=== PATIENT | female | born 1960 | race Caucasian/White ===

== ENCOUNTER 2019-06-20 21:16 | Emergency (ER) | payer SELFPAY ==
--- NOTE | ~2019-06-20 | XR_ITS ---
EXAMINATION: XR abdomen/kub 1V DATE: 06/20/2019 21:53 INDICATION: Abdominal distention. Constipation. TECHNIQUE: A supine view of the abdomen on 2 radiographs was obtained. COMPARISON: None. FINDINGS: There are no dilated loops of bowel. There is a small volume of stool in the colon. Calcifi cations in the pelvis are likely phleboliths. There is a staple line in left upper quadrant. IMPRESSION: 1. Normal bowel gas pattern. Reviewed, dictated and finalized at location A.
--- NOTE | 2019-06-20 21:20 | ED.GENADULT ---
HPI - General Adult General Chief complaint: Abdominal Pain Stated complaint: constipation Time Seen by Provider: 06/20/19 21:18 Source: patient Mode of arrival: ambulatory Limitations: no limitations History of Present Illness HPI narrative: Patient is a 59-year-old female who presents for evaluation of constipation. Patient reports a greater than weeklong history of no bowel movement, reports she has had some flatus, and very small pellety type stool. Patient currently states that she is impacted, has tried to digitally disimpact herself at home without much success. Patient reports feeling like her rectum is swollen, tender. Patient has a history of chronic constipation. She has tried enemas at home without much improvement as well. She reports mild, cramping abdominal pain, mild abdominal distention, no nausea or vomiting. Related Data Allergies Allergy/AdvReac Type Severity Reaction Status Date / Time fenofibric acid [Fibricor] Allergy Unknown arthralgias Verified 10/28/17 15:29 pitavastatin [Livalo] Allergy Unknown myalgias, Verified 10/28/17 15:29 arthralgias simvastatin Allergy Unknown Verified 10/28/17 15:29 SEROTONIN AdvReac Unknown Uncoded 05/04/15 18:32 Review of Systems Review of Systems: Narrative: CONSTITUTIONAL: Denies fever, chills, or sweats. CARDIOVASCULAR: Denies chest pain, palpitations, or edema. RESPIRATORY: Denies cough or dyspnea. GASTROINTESTINAL: Reports abdominal pain, denies nausea, vomiting, reports constipation GENITOURINARY: Denies dysuria or hematuria. SKIN: Denies rash or itching. MUSCULOSKELETAL: Denies back pain, joint pain, or myalgia. NEUROLOGIC: Denies headache, numbness, or weakness. [facility] Past Medical History Medical History Cataract Endometriosis Hyperlipidemia Hypertension Surgical History Surgical History History of hysterectomy Hx of tonsillectomy Family History Family History Father Diabetes mellitus Family history of glaucoma Sibling Depression Mother Hypertension Grandparent Family history of cardiovascular disease, Onset Age: 65 Acute myocardial infarction, Onset Age: 65 Social History Social History Smoking status: Never smoker Alcohol intake: current Exam Narrative: Exam Narrative: GENERAL: Awake, alert, conversant, ambulatory in room HEAD: Normocephalic, atraumatic. EYES: PERRLA and EOMI. ENT: Nares clear, no rhinorrhea or epistaxis. Mucous membranes moist. NECK: Supple. CHEST: No respiratory distress, breathing even and non labored HEART: Regular rate, sinus rhythm ABDOMEN: Obese, mild distention, tenderness in the left upper quadrant /rectal: Good rectal tone, no thrombosed hemorrhoids, no fissures, no active bleeding, stool present in the rectum, able to remove some digitally EXTREMITIES: Normal range of motion. No edema. SKIN: Warm, dry, no rash. NEURO:No focal deficits. Alert and oriented x3 Course Course Emergency Course: Patient presented for evaluation of constipation and abdominal cramping. No sign of obstruction at the time of assessment. Patient is mildly distended, KUB shows stool present, no free air, no sign of bowel obstruction. Patient was given magnesium, oral MiraLAX, and enema and was able to have a bowel movement. She was then discharged home in stable condition. Vital Signs Vital signs: Vital Signs Temperature 36.7 C 06/20/19 21:24 Pulse Rate 82 06/20/19 21:24 Respiratory Rate 18 06/20/19 21:24 Blood Pressure 152/83 H 06/20/19 21:24 Pulse Oximetry 99 06/20/19 21:24 Temperature 36.7 C 06/20/19 21:24 Pulse Rate 82 06/20/19 21:24 Respiratory Rate 18 06/20/19 21:24 Blood Pressure 152/83 H 06/20/19 21:24 Pulse Oximetry 99 06/20/19 21:24 Medical
[2019-06-20 21:24] VITALS: BP 152/83; PULSE 82; RESP 18; TEMP 36.7; O2SAT 99
[2019-06-20] MEDS: MAGNESIUM SULF 2 GM/WATER 50ML 2 GM/50 ML BAG IVPB (21:53)
[2019-06-20] MEDS: SODIUM CHLORIDE 0.9% IV 1,000 ML 999 ML IV CONT (21:57)
[2019-06-20] MEDS: polyethylene glycoL 3350 238 GM BOTTLE PO (21:58)
[2019-06-20 22:03] LABS: Basophils Absolute Auto 0.1 K/mm3 (0.0-0.1); Basophils Percent Auto 0.4 % (0.2-1.2); Eosinophils Absolute Auto 0.2 K/mm3 (0-0.3); Eosinophils Percent Auto 1.2 % (0-4.4); Hematocrit 45.5 % (37.0-47.0); Hemoglobin 14.6 g/dL (12.0-15.0); Immature Granulocyte Absolute 0.03 K/mm3 (0.00-0.031); Immature Granulocyte Percent A 0.2 % (0-0.5); Lymphocytes Absolute Auto 2.23 K/mm3 (0.9-3.2); Lymphocytes Percent Auto 18.3 % (18.3-44.2); Mean Corpuscular HGB Conc 32.1 g/dl (32-36); Mean Corpuscular Hemoglobin 30.4 pg (26-34); Mean Corpuscular Volume 94.8 fl (80-100); Monocytes Absolute Auto 0.8 K/mm3 (0.1-0.6); Monocytes Percent Auto 6.7 % (2.6-8.5); Neutrophils Absolute Auto 8.9 K/mm3 (1.3-6.7); Neutrophils Percent Auto 73.2 % (45.5-73.1); Platelet Count Result 284 k/mm3 (150-375); Red Cell Distribution Width 14.7 % (11.5-14.5); White Blood Count 12.2 K/mm3 (4.5-10.0)
[2019-06-20 22:15] LABS: Blood Urea Nitrogen 10 mg/dL (7-17); Calcium 9.3 mg/dL (8.4-10.2); Carbon Dioxide 31 mmol/L (22-30); Chloride 104 mmol/L (98-107); Estimated CRCL calculation 86 ml/min; Estimated Glomerular Filt Rate > 60; Glucose 130 mg/dL (65-105); Potassium 4.5 mmol/L (3.4-5.0); Sodium 139 mmol/L (137-145)
[2019-06-20 23:02] VITALS: BP 138/97; PULSE 81; RESP 18; O2SAT 98
== END 2019-06-20 23:03 | disposition home or self-care (01) ==
PROVIDERS: Emergency Provider Emergency Medicine; PCP Family Medicine
DX: K59.01 Slow transit constipation (principal); N80.9 Endometriosis, unspecified; E78.5 Hyperlipidemia, unspecified; I10 Essential (primary) hypertension; H26.9 Unspecified cataract
CPT/HCPCS: 36415; 74018; 80048; 85025; 96365; 99284; A9270; J3475; J7030

== ENCOUNTER 2019-11-15 09:53 | Outpatient (NON) | payer OTHER, SELFPAY ==
[2019-11-15 21:51] LABS: SARS-CoV-2 RNA PCR Negative
== END 2019-11-15 09:54 ==
PROVIDERS: PCP Family Medicine; Visit Provider Family Medicine
DX: Z20.828 Contact with and (suspected) exposure to other viral communicable diseases (principal)
CPT/HCPCS: 87635; C9803; U0003

== ENCOUNTER 2019-11-24 15:03 | Outpatient (CLI) | payer OTHER, SELFPAY ==
--- NOTE | ~2019-11-24 | XR_ITS ---
EXAMINATION: XR chest 2V DATE: 11/24/2019 15:18 INDICATION: Shortness of breath and history of asthma TECHNIQUE: 04/28/2015 COMPARISON: None available FINDINGS: The lungs are free of acute opacities. There is no pleural effusion or pneumothorax. The ca rdiomediastinal silhouette is normal. Calcified bilateral breast implants are noted. There is moderat e lower thoracic spondylosis. IMPRESSION: 1. No acute cardiopulmonary abnormality. Reviewed, dictated and finalized at location A.
== END 2019-11-24 15:04 | disposition home or self-care (01) ==
PROVIDERS: PCP Family Medicine; Visit Provider Internal Medicine Critical Care Medicine
DX: R06.02 Shortness of breath (principal); J45.909 Unspecified asthma, uncomplicated
CPT/HCPCS: 71046

== ENCOUNTER 2019-12-01 09:40 | Outpatient (CLI) | payer OTHER, SELFPAY ==
[2019-12-01 11:11] LABS: Alanine Aminotransferase 23 U/L (4-35); Albumin Level 4.3 g/dL (3.5-5.1); Alkaline Phosphatase 76 U/L (38-126); Aspartate Amino Transferase 30 U/L (14-36); Bilirubin,Total 0.6 mg/dL (0.2-1.3)
[2019-12-03 21:09] LABS: ANA Cascade Screen Negative (Negative)
[2019-12-06 03:59] LABS: Immunoglobulin E 2 kU/L (<=114)
--- NOTE | 2019-12-12 11:30 | WPDPFTINT ---
PFT Interpretation PFT Interpretation: This PFT met all criteria for ATS standards and reproducibility FEV/FVC post bronchodilator 74% FEV1 100% FVC 100% TLC 97% RV 94% RV/TLC 36% DLCO 72% when adjusted for alveolar volume but not adjusted for hemoglobin Flow volume loops showed some end expiratory coving Impression: Possible mild small airway obstruction with mildly decreased diffusion capacity. This may be suggestive of early COPD but other lung conditions cannot be ruled out. Clinical correlation is advised.
--- NOTE | 2019-12-12 11:33 | WPDSIXMINUTE ---
Six Minute Walk Six Minute Walk: The patients O2 sats started at 94% and dropped as low as 95% Total walk distance 1350 feet conclusion: This patient does not qualify for home oxygen therapy.
== END 2019-12-01 09:41 | disposition home or self-care (01) ==
PROVIDERS: PCP Family Medicine; Visit Provider Internal Medicine Critical Care Medicine
DX: R06.02 Shortness of breath (principal); M35.9 Systemic involvement of connective tissue, unspecified; J45.909 Unspecified asthma, uncomplicated
CPT/HCPCS: 36415; 80076; 82785; 86003; 86038; 94060; 94618; 94726; 94729

== ENCOUNTER 2020-10-24 00:57 | Day surgery (SDC) | payer OTHER, SELFPAY ==
[2020-10-18 14:02] VITALS: BMI 41.2
[2020-10-24 11:18] VITALS: BP 182/91; PULSE 72; RESP 18; TEMP 36.3; O2SAT 95
[2020-10-24] MEDS: LACTATED RINGERS 1,000 ML 150 ML IV CONT (11:21)
--- NOTE | 2020-10-24 11:34 | WPDANESEPPF ---
Anes - Initial Pre Proc Eval Procedure: Operation Date: 10/24/20 12:30 Proposed Procedures p Esophagogastroduodenoscopy - Marcos Samano MD Date/Time: 10/24/20 11:34 Surgeon: Marcos Samano MD Pre Op Diagnosis: dysphagia Patient Data Age: 60 Gender: F Height: 1.63 m Weight: 111.2 kg Last Vital Signs Temp 97.3 F L 10/24/20 11:18 Pulse 72 10/24/20 11:18 Resp 18 10/24/20 11:18 BP 182/91 H 10/24/20 11:18 Pulse Ox 95 10/24/20 11:18 Allergies Allergy/AdvReac Type Severity Reaction Status Date / Time fenofibric acid [Fibricor] Allergy Unknown arthralgias Verified 10/24/20 11:18 pitavastatin [Livalo] Allergy Unknown myalgias, Verified 10/24/20 11:18 arthralgias simvastatin Allergy Unknown uknown Verified 10/24/20 11:18 Home Medications Medication Instructions Recorded Confirmed Type Symbicort 160 mcg-4.5 2 puff INHALATION Q12H #10.2 g NS 06/28/20 10/18/20 Rx mcg/actuation HFA aerosol inhaler albuterol sulfate 90 mcg/actuation 2 inh INHALATION Q4H #8.5 gm 06/28/20 10/18/20 Rx aerosol inhaler montelukast 10 mg tablet 10 mg PO DAILY #90 tablet 06/28/20 10/18/20 Rx trazodone 50 mg tablet 100 mg PO .QHS #60 tablet 08/30/20 10/18/20 Rx alprazolam 1 mg tablet 1 mg PO TID PRN #90 tablet 10/03/20 10/18/20 Rx Patient hx anesthesia problems: none Family hx anesthesia problems: none PMFSH Past Medical History Medical History (Updated 08/30/20 @ 17:11 by Faustino Lance MD) Asthma Cataract Endometriosis Hyperlipidemia Hypertension Surgical History Surgical History (Updated 08/30/20 @ 17:02 by Faustino Lance MD) Bariatric surgery status gastric sleeve History of hysterectomy Hx of tonsillectomy Family History Family History Father Diabetes mellitus Family history of glaucoma Sibling Depression Mother Hypertension Grandparent Family history of cardiovascular disease, Onset Age: 65 Acute myocardial infarction, Onset Age: 65 Social History Social History Smoking status: Never smoker Alcohol intake: current Drinks per week: 10 Alcohol use details: wine Living arrangements: with family Spiritual care concerns: No Anes - Eval Final PreProcedure Day of Procedure 10/24/20 11:34 Patient weight: morbidly obese Heart: regular rate and rhythm Lungs: clear to auscultation Airway: Mallampati scale class II Neurological: alert and oriented Last oral intake: >/= 8 hours ASA classification: III Emergent: no Anesthetic plan: proceed Anesthesia type and monitoring: general GIVS and standard monitoring Informed Consent: The patient's anesthetic plan and its attendant risks and benefits were discussed with the patient/family/POA. Questions were solicited and answers provided to the satisfaction of the patient/family/POA.
--- NOTE | 2020-10-24 11:44 | WPDGICN ---
Assessment and Plan Assessment and plan (1) Dysphagia: Qualifiers: Dysphagia type: esophageal phase Qualified Code(s): R13.19 - Other dysphagia Code(s): R13.10 - Dysphagia, unspecified Status: Acute Assessment and Plan: Difficulty swallowing appears to suggest esophageal narrowing. He had she does have a history of heartburn raising the question of acid reflux. Plan is for EGD at assess more thoroughly. She will have esophageal dilatation if necessary. Consider increasing Pepcid to a PPI products pending results of EGD. (2) Epigastric abdominal pain: Code(s): R10.13 - Epigastric pain Status: Acute Assessment and Plan: Patient complains of epigastric pain. She has a prior history of gastric sleeve this will be assessed at the time of EGD. She appears to have a poor response to Pepcid trial for this discomfort. (3) Obesity, unspecified: Code(s): E66.9 - Obesity, unspecified Status: Acute Assessment and Plan: Patient remains obese despite previous gastric sleeve surgery. Weight loss diet control as encourage. GI Consult Note Consult date/time: 10/24/20 11:44 HPI: Kelsey Sanders is a 60 year old female Presents for evaluation of swallowing difficulties. Patient reports having a gastric sleeve gastrectomy 10 years ago. She states on eating she will occasionally have epigastric discomfort. Solid foods such as chicken will catch in the mid substernal portion the chest. She has minimal difficulties with liquids. She does report significant heartburn for which she takes Pepcid on a regular basis. In general this helps control her heartburn. Recently she has begun to note discomfort in the left throat. Of uncertain nature she is uncertain whether this is from acid reflux or not. She denies any weight loss. She has had no bleeding. Family history is noncontributory. Review of Systems Review of Systems: All systems reviewed & are unremarkable except as noted in HPI and below PMFSH Past Medical History Medical History (Updated 10/24/20 @ 11:46 by Marcos Samano MD) Asthma Cataract Endometriosis Hyperlipidemia Hypertension Surgical History Surgical History (Updated 08/30/20 @ 17:02 by Faustino Lance MD) Bariatric surgery status gastric sleeve History of hysterectomy Hx of tonsillectomy Family History Family History Father Diabetes mellitus Family history of glaucoma Sibling Depression Mother Hypertension Grandparent Family history of cardiovascular disease, Onset Age: 65 Acute myocardial infarction, Onset Age: 65 Social History Social History Smoking status: Never smoker Alcohol intake: current Drinks per week: 10 Alcohol use details: wine Living arrangements: with family Spiritual care concerns: No Meds Home Medications and Allergies Home Medications Medication Instructions Recorded Confirmed Type Symbicort 160 mcg-4.5 2 puff INHALATION Q12H #10.2 g NS 06/28/20 10/18/20 Rx mcg/actuation HFA aerosol inhaler albuterol sulfate 90 mcg/actuation 2 inh INHALATION Q4H #8.5 gm 06/28/20 10/18/20 Rx aerosol inhaler montelukast 10 mg tablet 10 mg PO DAILY #90 tablet 06/28/20 10/18/20 Rx trazodone 50 mg tablet 100 mg PO .QHS #60 tablet 08/30/20 10/18/20 Rx alprazolam 1 mg tablet 1 mg PO TID PRN #90 tablet 10/03/20 10/18/20 Rx Allergies Allergy/AdvReac Type Severity Reaction Status Date / Time fenofibric acid [Fibricor] Allergy Unknown arthralgias Verified 10/24/20 11:18 pitavastatin [Livalo] Allergy Unknown myalgias, Verified 10/24/20 11:18 arthralgias simvastatin Allergy Unknown uknown Verified 10/24/20 11:18 Vital Signs Vital Signs - 24 hr 10/24/20 11:18 Temperature 97.3 F L Pulse Rate 72 Respiratory Rate 18 Blood Pressure 182/91 H Pulse Oximetry 95
[2020-10-24 11:58] VITALS: BP 158/89; PULSE 68; RESP 19; O2SAT 97
[2020-10-24 12:08] VITALS: BP 147/96; PULSE 72; RESP 20; O2SAT 97
[2020-10-24 12:18] VITALS: BP 150/89; PULSE 60; RESP 18; O2SAT 98
== END 2020-10-24 12:28 | disposition home or self-care (01) ==
PROVIDERS: PCP Family Medicine; Visit Provider Internal Medicine Gastroenterology
PROC: 0DJ08ZZ Inspection of Upper Intestinal Tract, Via Natural or Artificial Opening Endoscopic (ICD-10-PCS; CPT 43235; principal; 2020-10-24 12:30)
DX: R13.19 Other dysphagia (principal); R10.13 Epigastric pain; Q39.4 Esophageal web; K44.9 Diaphragmatic hernia without obstruction or gangrene; J45.909 Unspecified asthma, uncomplicated; N80.9 Endometriosis, unspecified; I10 Essential (primary) hypertension; E78.5 Hyperlipidemia, unspecified; Z79.51 Long term (current) use of inhaled steroids; E66.01 Morbid (severe) obesity due to excess calories; Z68.41 Body mass index [BMI] 40.0-44.9, adult
CPT/HCPCS: 43450; 43235; J2001; J2704; J7120

== ENCOUNTER 2021-08-07 15:29 | Outpatient (CLI) | payer OTHER, SELFPAY ==
--- NOTE | ~2021-08-07 | MM_ITS ---
EXAMINATION: MM scrn dina implant BI w claudette HISTORY: Screening mammogram TECHNIQUE: Craniocaudal and mediolateral oblique 3-D tomosynthesis images with implant displacement a nd synthetic 2-D images were generated. Craniocaudal and mediolateral oblique views of the breasts wi thout implant displacement were obtained using full field digital mammography. CAD analysis was submi tted and interpreted. COMPARISON: Comparison to multiple prior studies sequentially, with oldest reviewed study dated 04/29/2014. BREAST PARENCHYMAL COMPOSITION: There are scattered areas of fibroglandular density. FINDINGS: There are bilateral subglandular silicone implants. There is no evidence of suspicious mass , calcification, or architectural distortion to suggest malignancy in either breast. There has been n o suspicious interval change. IMPRESSION: 1. No mammographic evidence of malignancy. 2. Recommend routine screening mammography in one year. BI-RADS Category 1: Negative Reviewed, dictated and finalized at location A.
== END 2021-08-07 15:30 | disposition home or self-care (01) ==
LOC: ANHIMG 15:31
PROVIDERS: PCP Family Medicine; Visit Provider Family Medicine
DX: Z12.31 Encounter for screening mammogram for malignant neoplasm of breast (principal)
CPT/HCPCS: 77063; 77067

== ENCOUNTER 2022-03-05 15:18 | Outpatient (CLI) | payer OTHER, SELFPAY ==
--- NOTE | ~2022-03-05 | XR_ITS ---
EXAMINATION: XR chest 2V DATE: 03/05/2022 15:50 INDICATION: Melanoma TECHNIQUE: frontal and lateral views of the chest were obtained. COMPARISON: Chest radiograph dated 11/24/2019 FINDINGS: The lungs remain clear with no focal airspace opacities, pulmonary edema, pleural effusion or pneumot horax. The cardiomediastinal silhouette is normal. Cancer peripheral calcifications associated with b ilateral breast implants. Moderate thoracic spondylosis. IMPRESSION: 1. No acute cardiopulmonary disease. Reviewed, dictated and finalized at location L. CREDIT LEASING CONSULTANT
--- NOTE | ~2022-03-05 | XR_ITS ---
EXAM: XR mandible min 4V DATE: 03/05/2022 15:50 HISTORY: pt fell into door last night pain right side of jaw . COMPARISON: None available. FINDINGS: Normal mineralization. No fracture or dislocation. No lytic or blastic lesion. The aerated spaces are clear. Symmetric orbits. No erosion or periosteal change. Soft tissues within normal limi ts. IMPRESSION: No acute osseous finding in the mandible. Reviewed, dictated and finalized at location K. ACY COMPLIANCE MANAGER
== END 2022-03-05 15:19 ==
PROVIDERS: PCP Internal Medicine; Visit Provider Internal Medicine
DX: S03.00XA Dislocation of jaw, unspecified side, initial encounter (principal); Z85.820 Personal history of malignant melanoma of skin; W19.XXXA Unspecified fall, initial encounter
CPT/HCPCS: 70110; 71046

== ENCOUNTER 2022-04-06 16:43 | Emergency (ER) | payer OTHER, SELFPAY ==
[2022-04-06 17:42] VITALS: BP 147/77; PULSE 74; RESP 20; TEMP 36.4; O2SAT 100
[2022-04-06 17:44] LABS: Basophils Percent Auto 0.4 % (0.2-1.2); Eosinophils Absolute Auto 0.2 K/mm3 (0-0.3); Eosinophils Percent Auto 2.2 % (0-4.4); Hematocrit 30.3 % (37.0-47.0); Hemoglobin 9.7 g/dL (12.0-15.0); Immature Granulocyte Absolute 0.05 K/mm3 (0.00-0.031); Immature Granulocyte Percent A 0.5 % (0-0.5); Lymphocytes Absolute Auto 2.06 K/mm3 (0.9-3.2); Lymphocytes Percent Auto 22.6 % (18.3-44.2); Mean Corpuscular Hemoglobin 30.4 pg (26-34); Mean Platelet Volume 9.8 fl (7.4-10.4); Monocytes Absolute Auto 1.1 K/mm3 (0.1-0.6); Monocytes Percent Auto 11.7 % (2.6-8.5); Neutrophils Absolute Auto 5.7 K/mm3 (1.3-6.7); Neutrophils Percent Auto 62.6 % (45.5-73.1); Platelet Count Result 280 k/mm3 (150-375); Red Blood Count 3.19 M/mm3 (4.2-5.4); Red Cell Distribution Width 14.2 % (11.5-14.5); White Blood Count 9.1 K/mm3 (4.5-10.0)
[2022-04-06 17:56] LABS: Partial Thromboplastin Time 27.6 SECONDS (22.3-36.8)
[2022-04-06 18:19] LABS: Anion Gap 3 mmol/L (8-16); Blood Urea Nitrogen 15 mg/dL (7-17); Calcium 8.9 mg/dL (8.4-10.2); Carbon Dioxide 27 mmol/L (22-30); Chloride 102 mmol/L (98-107); Estimated Glomerular Filt Rate > 60; Glucose 102 mg/dL (65-110); Potassium 4.6 mmol/L (3.4-5.0); Sodium 132 mmol/L (137-145)
--- NOTE | 2022-04-06 19:24 | ED.GENADULT ---
HPI - General Adult General Chief complaint: Extremity Problem,Nontraumatic Stated complaint: L leg swelling, post op L knee replacement Friday Time Seen by Provider: 04/06/22 19:11 History of Present Illness HPI narrative: Patient 61-year-old female who presents the emergency department with chief complaint of left leg swelling and bruising. The patient is status post knee replacement last week at another facility. Patient states she was up in the ICU visiting her father and they noticed that her leg was bruised and swollen. Patient is taking an aspirin for postsurgery prophylaxis and reports no new trauma. The patient reports no chest pain or shortness of breath Related Data Home Medications Medication Instructions Recorded Confirmed cholecalciferol (vitamin D3) 50 50 mcg PO DAILY 10/09/21 03/18/22 mcg (2,000 unit) capsule guaifenesin 100 mg/5 mL oral liquid 100 mg PO Q4H PRN 02/25/22 03/18/22 aspirin 81 mg chewable tablet 81 BID 04/06/22 Allergies Allergy/AdvReac Type Severity Reaction Status Date / Time No Known Allergies Allergy Verified 04/06/22 16:45 Review of Systems Review of Systems: A 10 system review of systems was completed on the patient and is negative except for what is stated in the HPI. Nursing and ancillary documentation was reviewed. [facility] Past Medical History Medical History Asthma Body mass index (BMI) 40.0-44.9, adult Cataract Colon cancer screening DJD (degenerative joint disease) of knee Encounter for preventive health examination Encounter to establish care Endometriosis Esophageal web Grade I diastolic dysfunction Hiatal hernia Hx of herpes zoster Hx of melanoma of skin Hyperlipidemia Hypersomnolence Hypertension Vitamin D deficiency Surgical History Surgical History Bariatric surgery status gastric sleeve History of hysterectomy History of sleeve gastrectomy Hx of tonsillectomy Family History Family History Father Diabetes mellitus Family history of glaucoma Sibling Depression Mother Hypertension Grandparent Family history of cardiovascular disease, Onset Age: 65 Acute myocardial infarction, Onset Age: 65 Social History Social History Smoking status: Never smoker Second hand tobacco smoke exposure: No Alcohol intake: current Drinks per week: 10 Alcohol use details: wine Lack of Transportation: No Lack of Food: Never True Current Housing: I Have Housing Concerned About Future Housing: No Difficulty Paying Gas/Electric Bills: No Difficulty Paying for Meds: No Currently Unemployed: No Education: Bachelor's Degree Difficulty w/ Childcare or Family Care: No Living arrangements: with family Occupation/Education: occupation Gender identity (if verbalized by the patient): Female Spiritual care concerns: No Exam Narrative: GENERAL: Well-appearing, well-nourished, and in no acute distress. HEAD: Normocephalic, atraumatic. EYES: PERRLA and EOMI. ENT: Nares clear, no rhinorrhea or epistaxis. Mucous membranes moist. NECK: Supple. CHEST: Clear to auscultation. No respiratory distress. HEART: Regular rate and rhythm. No murmur heard. Normal peripheral pulses. ABDOMEN: Soft, nontender, nondistended, normal active bowel sounds. EXTREMITIES: Normal range of motion. No edema. There is significant bruising of the left lower extremity from the thigh down to the ankle. There is intact dorsalis pedis pulse negative Homans' sign SKIN: Warm, dry, no rash. NEURO: No focal deficits. Alert and oriented x3. PSYCH: Normal mood and affect. Course Vital Signs Vital signs: Vital Signs Temperature 36.4 C L 04/06/22 17:42 Pulse Rate 74 04/06/22 17:42 Respiratory Ra
[2022-04-06 19:35] LABS: INR 0.9; Prothrombin Time 12.2 Seconds (11.1-14.7)
[2022-04-06 20:00] VITALS: BP 152/77; PULSE 66; RESP 16; O2SAT 97
[2022-04-06] MEDS: ENOXAPARIN 100 MG/ML SYRINGE SUB-Q (20:10)
== END 2022-04-06 20:18 | disposition home or self-care (01) ==
PROVIDERS: Physician Assistant; Emergency Provider Emergency Medicine; PCP Internal Medicine
DX: L76.82 Other postprocedural complications of skin and subcutaneous tissue (principal); M79.89 Other specified soft tissue disorders; J45.909 Unspecified asthma, uncomplicated; I10 Essential (primary) hypertension; E78.5 Hyperlipidemia, unspecified; M17.9 Osteoarthritis of knee, unspecified; N80.9 Endometriosis, unspecified; E55.9 Vitamin D deficiency, unspecified; Z96.652 Presence of left artificial knee joint; Z98.84 Bariatric surgery status; Z90.710 Acquired absence of both cervix and uterus; Z85.820 Personal history of malignant melanoma of skin; Z79.85 Long-term (current) use of injectable non-insulin antidiabetic drugs; Z79.82 Long term (current) use of aspirin; Z79.02 Long term (current) use of antithrombotics/antiplatelets; Y83.8 Other surgical procedures as the cause of abnormal reaction of the patient, or of later complication, without mention of misadventure at the time of the procedure
CPT/HCPCS: 36415; 80048; 85025; 85610; 85730; 96372; 99283; J1650

== ENCOUNTER 2022-04-07 09:09 | Outpatient (CLI) | payer OTHER, SELFPAY ==
--- NOTE | ~2022-04-07 | US_ITS ---
US venous doppler [facility] DATE: 04/07/2022 10:55 INDICATION: Pain and swelling. Recent knee replacement. TECHNIQUE: Real-time and color flow imaging and Doppler analysis of the veins of the left lower extre mity COMPARISON: None FINDINGS: The left greater saphenous vein is patent. There is spontaneous and phasic flow and normal augmentation and color flow signal and normal compression of the deep veins of the left lower extremi ty. There is some edema of the lower leg. IMPRESSION: Lower leg edema in this patient postoperative from recent knee joint replacement No deep venous thrombosis is demonstrated Reviewed, dictated and finalized at Location A. Reviewed, dictated and finalized at location A. PRODUCT MANAGER IMPRESSION: Lower leg edema in this patient postoperative from recent knee join t replacement No deep venous thrombosis is demonstrated
== END 2022-04-07 09:10 | disposition home or self-care (01) ==
PROVIDERS: PCP Internal Medicine; Visit Provider Internal Medicine
DX: M79.89 Other specified soft tissue disorders (principal)
CPT/HCPCS: 93971

== ENCOUNTER 2023-02-04 10:25 | Outpatient (CLI) | payer OTHER, SELFPAY ==
--- NOTE | ~2023-02-04 | XR_ITS ---
EXAMINATION: XR chest 2V DATE: 02/04/2023 10:41 INDICATION: Cough. TECHNIQUE: Frontal and lateral views of the chest were obtained. COMPARISON: Chest 2 views 03/05/2022 FINDINGS: There is no pneumonia, pleural effusion, or pneumothorax. The heart size is normal. Breast implants are noted. IMPRESSION: 1. No acute cardiopulmonary disease. Reviewed, dictated and finalized at location E. LIFE VETERINARIAN
== END 2023-02-04 10:26 ==
PROVIDERS: PCP Internal Medicine; Visit Provider Internal Medicine
DX: R05.9 Cough, unspecified (principal)
CPT/HCPCS: 71046

== ENCOUNTER 2023-02-04 10:48 | Outpatient (CLI) | payer OTHER, SELFPAY ==
[2023-02-04 19:33] LABS: Basophils Percent Auto 0.5 % (0.2-1.2); Eosinophils Percent Auto 0.7 % (0-4.4); Hematocrit 42.3 % (37.0-47.0); Hemoglobin 13.2 g/dL (12.0-15.0); Immature Granulocyte Absolute 0.02 K/mm3 (0.00-0.031); Immature Granulocyte Percent A 0.4 % (0-0.5); Lymphocytes Absolute Auto 1.17 K/mm3 (0.9-3.2); Lymphocytes Percent Auto 20.8 % (18.3-44.2); Mean Corpuscular HGB Conc 31.2 g/dl (32-36); Mean Corpuscular Hemoglobin 29.3 pg (26-34); Monocytes Absolute Auto 0.6 K/mm3 (0.1-0.6); Monocytes Percent Auto 10.8 % (2.6-8.5); Neutrophils Absolute Auto 3.8 K/mm3 (1.3-6.7); Neutrophils Percent Auto 66.8 % (45.5-73.1); Platelet Count Result 259 k/mm3 (150-375); Red Cell Distribution Width 13.8 % (11.5-14.5); White Blood Count 5.6 K/mm3 (4.5-10.0)
[2023-02-04 19:36] LABS: Influenza A QL RT-PCR Negative (Negative); Influenza B QL RT-PCR Negative (Negative); RSV RNA, RT-PCR Negative (Negative); SARS-CoV-2 RNA PCR Positive (Negative)
== END 2023-02-04 10:49 | disposition home or self-care (01) ==
PROVIDERS: PCP Internal Medicine; Visit Provider Internal Medicine
DX: R09.89 Other specified symptoms and signs involving the circulatory and respiratory systems (principal); Z20.822 Contact with and (suspected) exposure to COVID-19
CPT/HCPCS: 36415; 85025; 87637

== ENCOUNTER 2024-10-12 15:46 | Outpatient (CLI) | payer BC, SELFPAY ==
--- OUTSIDE RECORDS SUMMARY | 2024-10-12 15:49 | XMS_ITS | Clinical Summary ---
Author Organization [facility] Address [address] [place] [address] Care Team Providers Care Supervisor Cell Efficiency Name Role Phone Kris Jimenez MD Primary Care Provider [phone] [facility],non-owned Affiliates and Associated Physician Practices is amultiple site organization consisting of ambulatory clinics and hospital sitesin [place], [place], [place] and [place]. This disclosure is being madepursuant to the Care Everywhere program and may not contain all information available regarding this patient. Last updated 17.[facility] Allergies No known active allergies Medications * Be aware that medications may not be up to date on this document. Alwaysverify current medications with the patient. ALPRAZolam (Xanax) 1 MG tabletIndicatio ns:Anxiety Take 1 (one) tablet by mouth 3 times daily as needed for Anxiety Reasons: Feeling Anxious 2 Active montelukast (Singulair) 10 MG tabletIndicatio ns:Asthma at bedtime Reasons: Asthma Active budesonide-form oterol (Symbicort) 160-4.5 MCG/ACT inhalerIndicati ons:Asthma Inhale 2 (two) puffs by mouth 2 times daily Reasons: Asthma Active cyclobenzaprine (Flexeril) 10 MG tabletIndicatio ns:Muscle Spasm Take 1 (one) tablet by mouth 3 times daily as needed Reasons: Muscle Spasm 2 Active Famotidine-Ca Carb-Mag Hydrox (PEPCID COMPLETE PO)Indications: GERD Take by mouth at bedtime Reasons: GERD Active Polyethylene Glycol 3350 (MIRALAX PO)Indications: constipation Take 1 packet by mouth once daily as needed Reasons: constipation Active rosuvastatin (Crestor) 40 MG tabletIndicatio ns:Hyperlipidem ia Take 1 (one) tablet by mouth at bedtime Reasons: High Amount of Fats in the Blood Active lisinopril-hydr oCHLOROthiazide (Prinzide; Zestoretic) 10-12.5 MG tabletIndicatio ns:Hypertension Take 1 (one) tablet by mouth once daily Reasons: High Blood Pressure Disorder 3 Active Vitamin D3 (Cholecalcifero l) 50 MCG (2000 UT) capsuleIndicati ons:Vitamin D Deficiency Take 1 (one) capsule by mouth once daily Reasons: Vitamin D Deficiency Active cyanocobalamin (Vitamin B-12) 1000 MCG tabletIndicatio ns:Vitamin B12 Deficiency Take 1 (one) tablet by mouth once daily Reasons: Inadequate Vitamin B12 Active escitalopram (Lexapro) 10 MG tabletIndicatio ns:Generalized Anxiety Disorder Take 1 tablet by mouth once daily Reasons: Generalized Anxiety Disorder Active omeprazole (PriLOSEC) 20 MG capsuleIndicati ons:Gastroesoph ageal Reflux Disease Take 1 (one) capsule by mouth once daily for 42 days 42 capsule 3 Active ondansetron, disintegrating, (Zofran ODT) 4 MG tablet Take 1 (one) tablet by mouth every 6 hours as needed for Nausea/Vomiting Allow tablet to dissolve on the tongue 20 tablet 3 Active Additional Information Patient not taking.Reported on 12/31/2022 traZODone (Desyrel) 100 MG tablet Take 1 (one) tablet by mouth 3 Active cyanocobalamin (Vitamin B-12) injection INJECT 0.1 ML INTO THE MUSCLE EVERY MONTH 3 Active oxyCODONE, immediate release, (Roxicodone) 5 MG tabletIndicatio ns:Postoperativ e pain Take 1 (one) tablet by mouth every 8 hours as needed for Pain 21 tablet 4 Active Active Problems Problem Noted Date Diagnosed Date Primary osteoarthritis of both knees 12/03/2021 Dermatitis 03/16/2010 Essential (primary) hypertension 03/16/2010 Encounters Date Type Department Care Team Description 07/13/2024 2:40 PM CDT Ancillary Procedure [facility] Orthopedics - Radiology [address] [place] [address] Mario Alberto Flores MD Aftercare following right knee joint replacement surgery 07/13/2024 2:10 PM CDT Ancillary Procedure [facility] Orthopedics - Radiology [address] [place] [address] Mario Alberto Flores MD Aftercare following right knee joint replacement surgery; Aftercare following left knee joint replacement surgery 07/13/2024 2:00 PM CDT Office Visit [facility]oped[facility] [address], [address] [place] [address] Mario Alberto Flores MD Aftercare following right knee joint replacement surgery (Primary Dx); Aftercare following left knee joint replacement surgery from Last 3 Months Family History Medical History Relation Name Comments None Known Father Status: BCC Allergy (Severe) Neg Hx CVA Neg Hx Cancer Neg Hx Cancer - Breast Neg Hx Cancer - Skin, Melanoma Neg Hx Cancer - Skin, Non Melanoma Neg Hx Eczema Neg Hx Hemophilia Neg Hx Psoriasis Neg Hx Rashes/Skin Problems Neg Hx Relation Name Status Comments Father Social History Tobacco Use Types Packs/Day Years Used Date Smoking Tobacco: Never Smokeless Tobacco: Never Alcohol Use Standard Drinks/Week Comments Yes 0 (1 standard drink = 0.6 oz pure alcohol) 6-8 glasses of wine per week, sometimes more OASIS D0700: Social Isolation Answer Da te Recorded Frequency of experiencing loneliness or isolatio n Never 12/27/2022 OASIS A1250: Transportation Answer Date Recorded Lack of Transportation (Medical) No 12/27/2022 Lack of Transportation (Non-Medical) No 12/27/2022 Patient Unable or Declines to Respond No 12/27/2022 OASIS B1300: Health Literacy Answer Shaun e Recorded Frequency of needing help to read materials from doctor or pharmacy Never 12/27/2022 AUDIT-C Answer Date Recorded Q1: How often do you have a drink containing alcohol? Monthly or less 12/11/2022 Q2: How many drinks containi ng alcohol do you have on a typical day when you are drinking? Patient does not drink Q3: How often do you have si x or more drinks on one occasion? Never 12/11/2022 Overall Financial Resource Strain (CARDIA) Answe r Date Recorded How hard is it for you to pa y for the very basics like food, housing, medical care, and heating? Not hard at all 12/12/2022 PHQ-2 Answer Date Recorded Patient Health Questionnaire-2 Score 5 07/13/2024 [facility] [place] [facility] Occupat ional Health - Occupational Stress Questionnaire Answer Date Recorded Do you feel stress - tense, restless, nervous, or anxious, or unable to sleep at night because your mind is troubled all the time - these days? Not at all 12/12/2022 Hunger Vital Sign Answer Date Recorded Within the past 12 months, y ou worried that your food would run out before you got the money to buy more. Never true 12/13/19 23 Within the past 12 months, t he food you bought just didn't last and you didn't have money to get more. Never true 12/12/2022 PRAPARE - Transportation Answer Date Re corded In the past 12 months, has l ack of transportation kept you from medical appointments or from getting medications? No 03/2022 In the past 12 months, has l ack of transportation kept you from meetings, work, or from getting things needed for daily living? No 12/12/2022 Housing Stability Vital Sign Answer Shaun e Recorded In the last 12 months, was t here a time when you were not able to pay the mortgage or rent on time? No 12/12/2022 In the last 12 months, how many places have you lived? 1 12/12/2022 In the last 12 months, was t here a time when you did not have a steady place to sleep or slept in a alf (including now)? 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 Gender Identity Not on file Sexual Orientation Not on file Last Filed Vital Signs Vital Sign Reading Time Taken Comments Blood Pressure 130/82 12/27/2022 11:18 AM DIRECTOR OF DIGITAL MARKETING Pulse 87 12/27/2022 11:18 AM DIRECTOR OF DIGITAL MARKETING Temperature 36.7 C (98 F) 12/27/2022 11:18 AM DIRECTOR OF DIGITAL MARKETING Respiratory Rate 16 12/27/2022 11:1 8 AM DIRECTOR OF DIGITAL MARKETING Oxygen Saturation 97% 12/27/2022 11: 18 AM DIRECTOR OF DIGITAL MARKETING Inhaled Oxygen Concentration - - Weight 104.6 kg (230 lb 9.6 oz) 023 11:11 AM CDT Height 160 cm (5' 3) 12/11/2022 11:11 AM CDT Body Mass Index 40.85 12/11/2022 11:11 AM CDT Plan of Treatment Health Maintenance Due Date Last Done Comments COLOGUARD (AGES 45-75) - COL ON CA SCREENING 1960 COLON MONITORING 1960 COLONOSCOPY - COLON CA SCREENING 1960 CT COLONOGRAPHY - COLON CA SCREENING 1960 Colorectal Cancer Screening 1960 FIT - COLON CA SCREENING 1960 FLEX SIG - COLON CA SCREENING 1960 MAMMOGRAM 1960 HIV SCREENING 05/06/1975 HEPATITIS C SCREENING 05/01/1978 DTAP/TDAP/TD VACCINES (1 - Tdap) 05/06/1979 PNEUMOCOCCAL VACCINE 50+ (1 of 1 - PCV) 2010 ZOSTER VACCINE (1 of 2) 2010 Respiratory Syncytial Virus (RSV) Vaccine Pt: or over 60 yrs (1 - Risk 60-74 years 1-dose series) 2020 COVID-19 VACCINE ( - 2023-2 5 season) 2023 DEPRESSION SCREENING 02/11/2024 INFLUENZA VACCINE (#1) 2024 HEPATITIS B VACCINE Aged Out No longe r eligible based on patient's age to complete this topic HIB VACCINE Aged Out No longer eligi ble based on patient's age to complete this topic HPV VACCINE Aged Out No longer eligi ble based on patient's age to complete this topic MENINGOCOCCAL (Group B) VACC INE SHARED DECISION-MAKING Aged Out No longer eligibl e based on patient's age to complete this topic MENINGOCOCCAL GROUPS A/C/Y/W VACCINE Aged Out No longer eligible b ased on patient's age to complete this topic Medical Devices Implanted Type Area Artificial Flowers Supervisor Device Identifier Shelf Expiration Date Model / Serial / Lot Cmnt Bone Djo Srg Cblt 40gm Hvisc Strl Implanted:Qty: 1 on 04/01/2022 by Mario Alberto Flores MD at [facility] Left: Knee [employer] 10/04/2023 600-15-000 / / [id number] Cmpnt Ptlr Std 28mm 3 Pg Kn Ser A Implanted:Qty: 1 on 04/01/2022 by Mario Alberto Flores MD at [facility] Left: Knee [employer] 12/18/2026 [id number] / / [id number] Tray Tib 67mm Kn Cocr I Beam Implanted:Qty: 1 on 04/01/2022 by Mario Alberto Flores MD at [facility] Left: Knee [employer] 04/25/2031 [id number] / / [id number] Cmpnt Fem Kn Lt Cr Cmnt Prm Vngrd Intlk 62.5mm Implanted:Qty: 1 on 04/01/2022 by Mario Alberto Floers MD at [facility] Left: Knee [employer] 01/15/2032 [id number] / / [id number] Brng [id number] Vngrd Arcm Kn Ant Stab Implanted:Qty: 1 on 04/01/2022 by Mario Alberto Flores MD at [facility] Left: Knee [employer] 01/21/2027 [id number] / / [id number] Brng 18ono27mu Vngrd Arcm Kn Ant Stab Implanted:Qty: 1 on 12/11/2022 by Mario Alberto Flores MD at [facility] Right: Knee [employer] 07/21/2027 [id number] / / [id number] Cmnt Bone Plc R 40gm Grn Implanted:Qty: 1 on 12/11/2022 by Mario Alberto Flores MD at [facility] Right: Knee [employer] 04/09/2025 [id number] / / [id number] Cmpnt Fem Kn Rt Cr Cmnt Prm Vngrd Intlk 62.5 Mm Implanted:Qty: 1 on 12/11/2022 by Mario Alberto Flores MD at [facility] Right: Knee [employer] 10/18/2032 [id number] / / [id number] Cmpnt Ptlr Std 28mm 3 Pg Kn Ser A Implanted:Qty: 1 on 12/11/2022 by Mario Alberto Flores MD at [facility] Right: Knee [employer] 10/04/2027 [id number] / / [id number] Tray Tib 67mm Kn Cocr I Beam Implanted:Qty: 1 on 12/11/2022 by Mario Alberto Flores MD at [facility] Right: Knee [employer] 09/19/2032 [id number] / / [id number] Procedures Procedure Name Priority Date/Time Associated Diagnosis Comments XR PELVIS W BILAT HIP 2VW Routine 07/13/2024 3:02 PM CDT Aftercare following right knee joint replacement surgery XR KNEE BILAT 3VW Routine 07/13/2024 2:2 0 PM CDT Aftercare following right knee joint replacement surgery Aftercare following left knee joint replacement surgery from Last 3 Months Results * XR Pelvis W Bilat Hip 2Vw (07/13/2024 3:02 PM CDT) Narrative [facility] [address] - 07/13/2024 3:02 PM CDT Please see progress note in Epic for results. us Mario Alberto Flores MD DIAGNOSTIC IMAGING ORDERABLES Final Result Performing Organization Address City/[facility]/ZIP Co de Phone Number [facility] [address] * XR Knee Bilat 3Vw (07/13/2024 2:20 PM CDT) Narrative [facility] [address] - 07/13/2024 2:20 PM CDT Please see progress note in Epic for results. Mario Alberto Flores MD DIAGNOSTIC IMAGING ORDERABLES Final Result Performing Organization Address City/[facility]/ZIP Co de Phone Number [facility] [address] from Last 3 Months Insurance ANTHEM Advance Directives * Full Code (Latest Code Status on File) Date Activated Date Inactivated Comments 12/11/2022 3:44 PM 12/12/2022 1:47 PM * Full Code Date Activated Date Inactivated Comments 04/01/2022 12:13 PM 04/02/2022 1:59 PM Care Teams Supervisor Cell Efficiency Relationship Specialty Start Date End Date Kris Jimenez MD [address] [place] [address] PCP - General Internal Medicine 03/18/22
--- OUTSIDE RECORDS SUMMARY | 2024-10-12 15:49 | XMS_ITS | Encounter Summary ---
Author Organization [facility] Address [address] [place] [address] Care Team Providers Care Mushroom Growing Supervisor Name Role Phone Kris Jimenez MD Primary Care Provider [phone] Encounter Details Date Type Department Care Team (Late st Contact Info) Description 11/13/2020 Lab Requisition [facility] D[facility] Lab [address] [place] [id number] Carlin Molina MD [address] [place] [address] Social History Tobacco Use Types Packs/Day Years Used Date Smoking Tobacco: Never Alcohol Use Standard Drinks/Week Comments Yes 5 (1 standard drink = 0.6 oz pur e alcohol) Comments Unknown Sex and Gender Information Value Date Recorded Sex Assigned at Not on file 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 Gender Identity Not on file Sexual Orientation Not on file documented as of this encounter Plan of Treatment Not on file documented as of this encounter Procedures Procedure Name Priority Date/Time Associated Diagnosis Comments DERMATOPATHOLOGY Routine 11/09/2020 3:33 AM CDT documented in this encounter Results * DERMATOPATHOLOGY (11/09/2020 3:33 AM CDT) Case Report Dermatopathology Report Case: [id number] Authorizing Provider: Carlin Molina MD Collected: 11/09/2020 03:33 AM Ordering Location: [facility] Lab Received: 11/13/2020 06:08 AM Pathologist: Roberta Ragsdale MD Specimens: A) - Skin, left ala B) - Skin, left hip 12:45 PM CDT DERMATOPATHOLOGY LABORATORY Final Diagnosis Specimen A. SKIN, left ala: HYPERPLASTIC (HYPERTROPHIC) ACTINIC KERATOSIS; EXTENDING TO THE BASE OF THE SPECIMEN (L57.0) (see microscopic description and comment) Specimen B. SKIN, left hip: HYPERPLASTIC (HYPERTROPHIC) ACTINIC KERATOSIS (L57.0) 12:45 PM CDT DERMATOPATHOLOGY LABORATORY at 1245 CDT Clinical History A: BCCA vs SCCA. Path # [id number]. B: BCCA vs SCCA. Path # [id number]. 12:45 PM CDT DERMATOPATHOLOGY LABORATORY Gross Description Specimen A: Received is one formalin filled container labeled with the patient's name and designated left ala. The specimen consists of a shave biopsy measuring [id number]. Jar 0. Specimen B: Received is one formalin filled container labeled with the patient's name and designated left hip. The specimen consists of a shave biopsy measuring [id number]. Jar 0. 12:45 PM CDT DERMATOPATHOLOGY LABORATORY Microscopic Description Specimen A. SKIN, left ala: There is hyperkeratosis alternating with parakeratosis. There is epidermal hyperplasia with disorderly maturation of keratinocytes with nuclear pleomorphism confined to the lower half of the epidermis. This process extends to the base of the specimen. COMMENT: A squamous cell carcinoma cannot be ruled out. Specimen B. SKIN, left hip: There is hyperkeratosis alternating with parakeratosis. There is epidermal hyperplasia with disorderly maturation of keratinocytes with nuclear pleomorphism confined to the lower half of the epidermis. 12:45 PM CDT DERMATOPATHOLOGY LABORATORY Disclaimer An external and internal positive and negative controls are appropriate for the histochemical, immunohistochemical and immunofluorescence stain(s) in this case (if any), except where stated explicitly. The performance characteristics of the stain(s) cited in this report were developed and its performance characteristic determined by the Dermatopathology Laboratory at [facility], directed by Dr. Yessy Hinton. These tests need not be, and therefore are not, approved by the [place] Food and Drug Administration. The tests are used for clinical purposes. Billing Codes Specimen Charges Stain Charges 16534 40548 1 1 12:45 PM CDT DERMATOPATHOLOGY LABORATORY Embedded Images 12:45 PM CDT DERMATOPATHOLOGY LABORATORY Pathology/Cytology TISSUE SPECIMEN FROM SKIN / Unknown 11/09/2020 3:33 AM CDT 11/13/2020 6:08 AM CDT Miscellaneous samples (specimen) TISSUE SPECIMEN FROM SKIN / Unknown 11/09/2020 3:33 AM CDT 11/13/2020 6:08 AM CDT us Carlin Molina MD LAB - PATHOLOGY/CYTOLOGY ORDER LAMAR Final Result DERMATOPATHOLOGY LABORATORY [facility] - Department of Dermatology [facility] [address] [place] [address], [address] [phone] documented in this encounter Visit Diagnoses Not on filedocumented in this encounter Care Teams Mushroom Growing Supervisor Relationship Specialty Start Date End Date Kris Jimenez MD [address] [facility] [address] [place] [address] PCP - General Internal Medicine 03/18/22 documented as of this encounter
[2024-10-12 18:20] LABS: Add Urine Microscopic? NO; Appearance Urine Clear (Clear); Glucose Urine UA Negative (Negative); Leukocyte Esterase Ur Negative LEU/UL (Negative); Nitrate Urine Negative (Negative); Specific Grav Ur 1.014 (1.001-1.035)
[2024-10-12 18:25] LABS: Alanine Aminotransferase 40 U/L (6-35); Albumin Level 4.2 g/dL (3.5-5.1); Alkaline Phosphatase 65 U/L (38-126); Anion Gap 5 mmol/L (4-12); Aspartate Amino Transferase 55 U/L (14-36); Bilirubin,Total 0.6 mg/dL (0.2-1.3); Blood Urea Nitrogen 12 mg/dL (7-17); Calcium 9.3 mg/dL (8.4-10.2); Carbon Dioxide 29 mmol/L (22-30); Chloride 101 mmol/L (98-107); Cholesterol 146 mg/dL (0-200); Estimated Glomerular Filt Rate > 60; Glucose 99 mg/dL (65-110); HDL Direct 82 mg/dL; Potassium 4.3 mmol/L (3.4-5.0); Sodium 135 mmol/L (137-145); Total Protein 6.8 g/dL (6.3-8.2); Triglycerides 66 mg/dL (<150)
[2024-10-12 18:43] LABS: Free T4 Free Thyroxine 0.86 ng/dL (0.78-2.19)
[2024-10-12 19:01] LABS: Thyroid Stimulating Hormone 1.470 uIU/mL (0.465-4.680)
== END 2024-10-12 15:47 | disposition home or self-care (01) ==
PROVIDERS: PCP Internal Medicine; Visit Provider Internal Medicine
DX: E78.2 Mixed hyperlipidemia (principal); I10 Essential (primary) hypertension; Z79.899 Other long term (current) drug therapy; Z13.29 Encounter for screening for other suspected endocrine disorder
CPT/HCPCS: 36415; 80053; 80061; 81003; 84439; 84443